=== PATIENT | male | born 1995 | race Two or more races ===

== ENCOUNTER 2024-12-30 13:30 | Emergency (ER) | payer OTHER, SELFPAY ==
[2024-12-30 13:30] VITALS: BP 130/83; PULSE 95; RESP 15; TEMP 36.1; O2SAT 100; BMI 32.5
--- NOTE | 2024-12-30 15:03 | RAD_ITS ---
PROCEDURE: CHEST PA AND LATERAL 12/30/2024 REASON FOR EXAM: POSTERIOR CHEST TECHNIQUE: Procedure Code: RADCXR Modality: DX Procedure: CHEST PA AND LATERAL FINDINGS: The heart is normal in size. The lungs are clear. No acute osseous abnormalities. RAD/Chest PA and Lateral IMPRESSION: NO ACUTE FINDINGS. Reading Location: [id number]
--- NOTE | 2024-12-30 15:21 | EDS_ITS ---
HPI History of Present Illness Chief Complaint: Back Detail of Chief Complaint: Pain posterior left chest pain over ribs 5-6, 7 and 8 Informant: patient Onset/Context/Timing Onset: Weeks (3 weeks) Context: Gradual Onset Chronic pain exacerbated by: Negative Injury: - (Started day after he played soccer.) Timing: Continuous Quality: Aching Location: Thoracic Current Severity: Mild Maximum Severity: Moderate Worsened by: improves with Movement Relieved by: Nothing Associated Symptoms Associated Symptoms: Negative for Numbness, Tingling, Radiation to Right Leg, Radiation to Left Leg, Fever, Abdominal Pain, Dysuria, Unable to Ambulate or Unable to Transfer Narrative Narrative: Patient is a 29-year-old male. He presents with 3 weeks of mid thoracic back pain. This started the day after he played soccer. He has no history of direct trauma. He did not have pain during the match. He denies fever, chills night sweats. He denies cough or shortness of breath. Deep breathing does cause him some discomfort. He has no history of VTE. He has no risk factors for VTE. He denies leg pain, swelling or discoloration. He denies dysuria, frequency, urgency or hematuria. Prior similar symptoms: No Recent Illness/Hospitalization: No PFSH PFSH Medical History no medical history Home Medications Medication Instructions Recorded Last Taken Type hydrocodone-acetaminophen 5-325mg 1 tab PO Q6H PRN PRN Pain 3 days 12/30/24 Unknown Rx 5mg-325mg #10 TABLETS Family History no significant family his Surgical History no surgical history no surgical history Social History Smoking Status: Current every day smoker tobacco type: cigarettes ROS ROS ED Constitutional Constitutional ED: Denies chills, fever(s), subjective or sweats Cardiovascular Cardiovascular: Denies chest pain, orthopnea, palpitations, paroxysmal nocturnal dyspnea or racing heartbeat Respiratory/Chest Respiratory/Chest: Denies dyspnea, dyspnea on exertion, orthopnea, paroxysmal nocturnal dyspnea or sputum Gastrointestinal Gastrointestinal: Denies abdominal pain, diarrhea, nausea or vomiting Genitourinary Genitourinary ED: Denies dysuria, hematuria or urinary frequency Musculoskeletal Musculoskeletal: Reports back pain; Denies arthralgias or myalgias Integumentary Denies rash EXAM Physical Exam Const Vital Signs: 12/30/24 13:30 Temperature 97 F L Temperature Source Temporal Pulse Rate 95 Respiratory Rate 15 Blood Pressure 130/83 H Blood Pressure Mean 98 Pulse Ox 100 Oxygen Delivery Method Room Air Positive well nourished and well developed General Appearance ED: well developed and NAD HEENT Reports moist mucous membranes HEENT Narrative: HEENT is grossly unremarkable. Eyes PERRL and EOMs intact bilaterally General Eye ED: Negative for pale conjunctiva or scleral icterus Neck no lymphadenopathy, supple and no JVD Resp normal respiratory effort and clear to auscultation bilaterally Resp Narrative: Patient has reproducible pain posteriorly over ribs 5, 6, 7 and 8. There is no crepitus subcutaneous air. There is no bruising noted. There is no rash. Cardio regular rate, regular rhythm, S1 normal heart sound, S2 normal heart sound and no murmurs GI normal to inspection, nondistended, normoactive bowel sounds, soft to palpation, non-tender, non-distended and no masses Back/Spine normal to inspection; Negative for no thoracic nor lumbar tenderness Cervical Spine: Negative for cervical spine tenderness and Negative for paracervical muscle tenderness Thoracic Spine / Upper Back: paraspinal muscle tenderness left Extremity normal to inspection and no clubbing, cyanosis or edema Neuro oriented x3 and no sensory deficits noted Sensorium / Orientation: alert Skin no rashes or lesions noted and no wounds MDM MDM MDM Narrative Medical decision making narrative: Patient has been taking 3 ibuprofen tablets with each meal. Had no improvement. He has also tried ice with no improvement. Based on history. Golf this consistent with musculoskeletal. Since he has point tenderness more so over the 6th and 7th rib will obtain an x-ray to see if there is any evidence of posterior rib fracture, pneumothorax or any pulmonary pathology. Radiography Chest X-Ray - ED: 2 View, Read by ED Physician (No evidence of pneumothorax. There is no effusion. There is no obvious fractured ribs.), Normal, Heart, Lungs, Mediastinum, Bony Structures and No Acute Disease Treatment and Re-Evaluation Narrative: Patient states she was sent here from the [facility]. He was informed of his results. He states he would need an excuse for school. I state I would gladly write a note stating he was here. He also stated he needs an excuse from an exam. Discharge Plan Triage Chief Complaint: Back ED Provider: Roman,Ambrocio Dx/Rx/DC Orders Clinical Impression: Acute left-sided thoracic back pain, Elevated blood pressure reading without diagnosis of hypertension Prescriptions: New hydrocodone-acetaminophen 5-325 mg tablet 1 tab PO Q6H PRN PRN (Reason: Pain) 3 Days Qty: 10 0RF Stand Alone Forms: ED Work / School Excuse Primary Care Provider: Care Physician,No Primary Referrals: [place] [Group of Physicians, None] - 3-5 Days if not improving Care Physician,No Primary [Primary Care Provider, Medical] Activity Restrictions/Additional Instructions: 1. Apply ice 6-8 times a day 2. Take 4 ibuprofen tablets every 8 hours for the next 5 days Print Language: Micronesian Disposition Disposition: Home, Self Care
== END 2024-12-30 15:52 | disposition home or self-care (01) ==
PROVIDERS: Emergency Provider Emergency Medicine; Visit Provider Emergency Medicine
DX: M54.6 Pain in thoracic spine (principal); R07.81 Pleurodynia; R03.0 Elevated blood-pressure reading, without diagnosis of hypertension; G89.29 Other chronic pain; F17.210 Nicotine dependence, cigarettes, uncomplicated; Z79.899 Other long term (current) drug therapy
CPT/HCPCS: 71046; 99282

== ENCOUNTER 2025-01-06 22:06 | Emergency (ER) | payer OTHER, SELFPAY ==
[2025-01-06 22:09] VITALS: BP 145/84; PULSE 96; RESP 18; TEMP 36.9; O2SAT 100; BMI 32.7
[2025-01-06] MEDS: Ketorolac 30 MG/ML Syringe IV (23:41)
[2025-01-06 23:46] LABS: Mucous, Urine 0 SEEN /hpf (<or=2+); Red Blood Cells-Urine 0 SEEN /hpf (0-5)
[2025-01-06 23:48] LABS: Hematocrit 46.8 % (40-54); Hemoglobin 15.4 g/dL (13.0-16.5); Immature Granulocytes Count 0.060 X10^3/uL (0.0-0.0); Mean Corp Hgb Conc 32.9 g/dL (32-36); Mean Corpuscular Volume 85.7 fL (80-94); Mean Platelet Vol. 10.0 fl (6.2-12.0); NRBC Flagged by Analyzer 0 % (0-5); Platelet Count 274 K/mm3 (150-450); RBC Distribution Width CV 12.5 % (11.6-14.6); RBC Distribution Width SD 39.0 fl (35.1-43.9); Red Blood Count 5.46 M/mm3 (4.6-6.2); White Blood Count 9.4 K/mm3 (4.4-11.0)
[2025-01-06 23:57] LABS: Color, Urine Yellow (Yellow); Glucose, Dipstick Normal (Normal); Ketone-Dipstick Negative (Negative); Leukocyte Esterase-Dipstick Negative /ul (Negative); Nitrite-Dipstick Negative (Negative); Occult Blood-Urine Negative /ul (Negative); Protein-Dipstick 15 mg/dl (Negative); Specific Gravity, Urine 1.015 (1.002-1.030); Urine Bilirubin Dipstick Negative (Negative)
[2025-01-07 00:16] LABS: Anion Gap 10 (5-15); BUN 15 mg/dL (4-19); BUN/Creat Ratio 16.5 RATIO (10-20); Calcium,Total 9.6 mg/dL (7.6-11.0); Carbon Dioxide 24.0 mmol/L (21.0-32.0); Chloride 105 mmol/L (98-108); Estimated Creatinine Clearance 164.88 ml/min (50-250); Glucose 93 mg/dL (70-99); Potassium 3.9 mmol/L (3.3-5.1)
[2025-01-07 00:33] LABS: Squamous Epithelial Cells - UA 0-5 SEEN /hpf (0-5)
--- NOTE | 2025-01-07 00:39 | ED.VIS.BACK ---
HPI History of Present Illness Chief Complaint: Back Informant: patient Narrative Narrative: 29-year-old male presenting to the emergency room with left lower abdominal pain and back pain. Patient states about 3 weeks ago he was playing soccer the next day he had some left-sided upper to mid back pain. He states that about 10 days ago the pain got significantly worse so he came to emergency. He had a chest x-ray was felt to be muscular in nature. He states that he took the cyclobenzaprine that he was prescribed. He has subsequently developed a left lower abdominal pain and now states that the majority of his back hurts. However most of the pain is focused on the low back up to the scapular region. It is worse with movement. He denies any radicular symptoms to the legs. Denies any bowel or bladder changes. No fevers. No rashes. Denies any difficulty breathing or chest pain. PFSH PFSH Home Medications ?Medication ?Instructions ?Recorded ?Last Taken ?Type ketorolac 10 mg tablet 10 mg PO Q8H PRN pain #15 tabs 01/07/25 Unknown Rx methocarbamol 750 mg tablet 750 mg PO TID PRN back pain #15 01/07/25 Unknown Rx tabs Allergy/AdvReac Type Severity Reaction Status Date / Time No Known Allergies Allergy Verified 01/06/25 22:12 Social History Smoking Status: Current every day smoker tobacco type: cigarettes ROS ROS ED Constitutional Constitutional ED: Denies chills, fever(s) or weight loss Eyes Eyes: Denies change in vision or diplopia ENT ENT ED: Denies ear pain, rhinorrhea or sore throat Cardiovascular Cardiovascular: Denies chest pain, orthopnea, palpitations or racing heartbeat Respiratory/Chest Respiratory/Chest: Denies cough, dyspnea or orthopnea Gastrointestinal Gastrointestinal: Reports abdominal pain; Denies constipation, diarrhea, nausea or vomiting Genitourinary Genitourinary ED: Denies dysuria, hematuria or urinary frequency Musculoskeletal Musculoskeletal: Reports back pain; Denies arthralgias, myalgias or neck pain Integumentary Denies abscess or rash Neurologic Neurologic: Denies headache(s), paresthesias or weakness Psychiatric Psychiatric: Denies anxiety, depression, suicidal ideation or suicidal thoughts Endocrine Endocrinology: Denies polydipsia, polyphagia or polyuria Allergic/Immunologic Allergic/Immunologic ED: Denies mouth swelling, tongue swelling or urticaria EXAM Physical Exam Const Vital Signs: 01/06/25 22:09 Temperature 98.4 F Temperature Source Oral Pulse Rate 96 Respiratory Rate 18 Blood Pressure 145/84 H Blood Pressure Mean 104 Pulse Ox 100 Oxygen Delivery Method Room Air Positive well nourished and well developed General Appearance ED: well developed HEENT Reports normocephalic, head/scalp atraumatic and moist mucous membranes Eyes PERRL and EOMs intact bilaterally Neck no lymphadenopathy, supple and no JVD Resp normal respiratory effort and clear to auscultation bilaterally Cardio regular rate, regular rhythm and no murmurs GI soft to palpation, non-distended and no masses GI Narrative: Normal active bowel sounds. Mild tenderness to palpation without guarding or rebound the left lower quadrant. Inspection: Negative for abdominal distention Palpation: soft Back/Spine no CVA tenderness Back/Spine Narrative: Patient reports pain with sitting up. He does not appear particularly tender when I palpate the paraspinal musculature's. I do not appreciate any rashes. There is no CVA tenderness. Extremity normal to inspection General Extremety ED: Negative for edema General Extremity: Negative for edema Neuro oriented x3 and CN's II-XII intact bilaterally Sensorium / Orientation: alert Motor Exam: strength 5/5 throughout Deep Tendon Reflexes: Rt Patellar (L4): 2+, Lt Patellar (L4): 2+, Rt Ankle (S1): 2+ and Lt Ankle (S1): 2+ Deep Tendon Reflexes Back: Rt Patellar (L4): 2+, Lt Patellar (L4): 2+, Rt Ankle (S1): 2+ and Lt Ankle (S1): 2+ Psych mental status grossly normal Mood & Affect: Negative for depressed or tearful Skin no rashes or lesions noted and no wounds MDM MDM MDM Narrative Medical decision making narrative: Differential diagnosis includes ureterolithiasis UTI back spasm diverticulitis colitis malignancy discitis herniated disc Patient is neurologically intact without deficits or radiation to the legs. He has no bowel or bladder dysfunction. Basic blood work showed a white count of 9.4 normal creatinine. Urinalysis showed no overt infection. CT of the abdomen pelvis without contrast was obtained. No obvious ureterolithiasis was seen. No obvious colonic inflammation was noted. I do not see any obvious fracture. At this time patient clinically appears well I do not see anything emergent. However I cannot explain why the patient continues to have pain 3 weeks in duration. Methocarbamol and some ketorolac. I encouraged the patient to follow-up with his primary care doctor at the [facility] at the [facility]. Monitor for changes return if any emergent or worsening some History & Record Review Discussion w/independent historian: Patient Additional record(s) reviewed:: Prior ED visit Lab Data Attestation: I reviewed the patient's lab results. Labs: Laboratory Results - last 24 hr 01/06/25 01/06/25 23:35 23:40 WBC 9.4 RBC 5.46 Hgb 15.4 Hct 46.8 MCV 85.7 MCH 28.2 MCHC 32.9 RDW Std Deviation 39.0 RDW Coeff of Amelia 12.5 Plt Count 274 MPV 10.0 Immature Gran % (Auto) 0.600 Neut % (Auto) 65.5 Lymph % (Auto) 24.4 [place] % (Auto) 6.5 Eos % (Auto) 2.4 Baso % (Auto) 0.6 Absolute Neuts (auto) 6.2 Absolute Lymphs (auto) 2.30 Nucleated RBC % 0 Sodium 139 Potassium 3.9 Chloride 105 Carbon Dioxide 24.0 Anion Gap 10 BUN 15 Creatinine 0.91 Estim Creat Clear Calc 164.88 Est GFR (MDRD) Non-Af 118 BUN/Creatinine Ratio 16.5 Glucose 93 Calcium 9.6 Urine Color Yellow Urine Clarity Clear Urine pH 7.0 Ur Specific Murray 1.015 Urine Protein 15 H Urine Glucose (UA) Normal Urine Ketones Negative Urine Occult Blood Negative Urine Nitrite Negative Urine Bilirubin Negative Urine Urobilinogen Normal Ur Leukocyte Esterase Negative Urine RBC 0 SEEN Urine WBC 0-5 SEEN Ur Squamous Epith Cells 0-5 SEEN Urine Bacteria 1+ Urine Mucus 0 SEEN Radiography Diagnostic Testing: Clinical Impression(s) from Imaging Studies Abdomen/Pelvis CT 01/07/25 23:14 IMPRESSION: No urinary calculi or backpressure changes. Hepatic steatosis. T9 vertebral body sclerotic lesion. No acute pelvi-abdominal abnormalities, collections or free air. Reading Location: [place] [id number] Discharge Plan Triage Chief Complaint: Back ED Provider: Jose Maria Grant Dx/Rx/DC Orders Clinical Impression: Abdominal pain, Back pain Instructions: ED Back Pain (Acute or Chronic) Prescriptions: New ketorolac 10 mg tablet 10 mg PO Q8H PRN (Reason: pain) Qty: 15 0RF Rx Instructions: maximum total duration of 5 days from all oral, intranasal, or parenteral formulations methocarbamol 750 mg tablet 750 mg PO TID PRN (Reason: back pain) Qty: 15 0RF Discontinued cyclobenzaprine 10 mg tablet 10 mg PO DAILY Primary Care Provider: Care Physician,No Primary Referrals: [facility] [Group of Physicians, None] - As soon as possible Care Physician,No Primary [Primary Care Provider, Medical] Print Language: Greek Disposition Disposition: Home, Self Care
[2025-01-07 00:59] VITALS: BP 149/86; PULSE 86; RESP 18; TEMP 36.7; O2SAT 100
--- NOTE | 2025-01-07 23:14 | CT_ITS ---
PROCEDURE: CT/Abdomen/Pelvis without Cont
== END 2025-01-07 01:01 | disposition home or self-care (01) ==
PROVIDERS: Emergency Provider Emergency Medicine; Visit Provider Emergency Medicine
DX: R10.32 Left lower quadrant pain (principal); M54.9 Dorsalgia, unspecified; F17.210 Nicotine dependence, cigarettes, uncomplicated; Z79.899 Other long term (current) drug therapy
CPT/HCPCS: 74176; 80048; 81001; 85025; 96374; 99283; A4216

== ENCOUNTER 2025-01-10 07:17 | Inpatient (IN) | payer OTHER, SELFPAY ==
[2025-01-10] VITALS (7 sets, daily range): BP systolic 131–157; BP diastolic 71–91; PULSE 64–87; RESP 14–16; TEMP 36.7; O2SAT 98–100; BMI 31.9
--- NOTE | 2025-01-10 07:41 | CT_ITS ---
PROCEDURE: CT/CTA Chst, Abd, Pel W and/or WO
[2025-01-10] MEDS: 0.9% Normal Saline (1000mL) 1,000 ML 1000 ML IV (08:09)
[2025-01-10 08:10] LABS: Hematocrit 43.4 % (40-54); Hemoglobin 14.6 g/dL (13.0-16.5); Immature Granulocytes Count 0.040 X10^3/uL (0.0-0.0); Mean Corp Hgb Conc 33.6 g/dL (32-36); Mean Corpuscular Volume 85.3 fL (80-94); Mean Platelet Vol. 10.4 fl (6.2-12.0); NRBC Flagged by Analyzer 0 % (0-5); Platelet Count 276 K/mm3 (150-450); RBC Distribution Width CV 12.4 % (11.6-14.6); RBC Distribution Width SD 38.5 fl (35.1-43.9); Red Blood Count 5.09 M/mm3 (4.6-6.2); White Blood Count 8.0 K/mm3 (4.4-11.0)
[2025-01-10 08:37] LABS: AST(SGOT) 32 U/L (<=37); Alanine Aminotransfer ALT/SGPT 53 U/L (<=46); Albumin, Serum 4.4 g/dL (3.5-5.0); Alkaline Phosphatase 133 U/L (40-129); Anion Gap 8 (5-15); BUN 14 mg/dL (4-19); BUN/Creat Ratio 14.8 RATIO (10-20); Bilirubin, Direct 0.25 mg/dL (0.00-0.30); Calcium,Total 9.5 mg/dL (7.6-11.0); Carbon Dioxide 24.9 mmol/L (21.0-32.0); Chloride 106 mmol/L (98-108); Estimated Creatinine Clearance 163.02 ml/min (50-250); Globulin 2.6 g/dL (2.2-4.2); Glucose 104 mg/dL (70-99); Lipase 14 U/L (13-75); Potassium 4.1 mmol/L (3.3-5.1); Troponin T High Sensitivity 12 ng/L (<=22)
--- NOTE | 2025-01-10 08:44 | ED.VIS.BACK ---
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 This is the patient's third ED visit in 10 days. Patient states that the pain began the day after playing a game of soccer. He was seen initially in the emergency department and had a negative chest x-ray. He returned to last week and I saw the patient. At that point he was describing more left lower abdominal pain and left low back pain but otherwise a generalized back pain. He underwent CT of the abdomen pelvis and basic lab works and a urinalysis both of which were negative and was discharged home on ketorolac and methocarbamol. He states that the pain is in the mid back currently. He denies any abdominal pain or low back pain. He states that he cannot find a position of comfort and feels better up moving around. He denies any fevers. He denies any radiation of the pain. No bowel or bladder dysfunction. He denies any rashes or lesions. He denies any chest pain or shortness of breath. He denies any new trauma. He has not followed up from either of his previous ED visits. [facility] Home Medications ?Medication ?Instructions ?Recorded ?Last Taken ?Type ketorolac 10 mg tablet 10 mg PO Q8H PRN pain #15 tabs 01/07/25 Unknown Rx methocarbamol 750 mg tablet 750 mg PO TID PRN back pain #15 01/07/25 Unknown Rx tabs Allergy/AdvReac Type Severity Reaction Status Date / Time No Known Allergies Allergy Verified 01/10/25 07:18 Social History Smoking Status: Current every day smoker tobacco type: cigarettes ROS ROS ED Constitutional Constitutional ED: Denies chills, fever(s) or weight loss Eyes Eyes: Denies blurry vision, change in vision or diplopia ENT ENT ED: Denies ear pain, rhinorrhea or sore throat Cardiovascular Cardiovascular: Denies chest pain, orthopnea, palpitations or racing heartbeat Respiratory/Chest Respiratory/Chest: Denies cough, dyspnea or orthopnea Gastrointestinal Gastrointestinal: Denies abdominal pain, constipation, diarrhea, nausea or vomiting Genitourinary Genitourinary ED: Denies dysuria, hematuria or urinary frequency Musculoskeletal Musculoskeletal: Reports back pain; Denies arthralgias, myalgias or neck pain Integumentary Denies abscess or rash Neurologic Neurologic: Denies headache(s), paresthesias or weakness Psychiatric Psychiatric: Denies anxiety, depression, suicidal ideation or suicidal thoughts Endocrine Endocrinology: Denies polydipsia, polyphagia or polyuria Allergic/Immunologic Allergic/Immunologic ED: Denies mouth swelling, tongue swelling or urticaria EXAM Physical Exam Narrative Exam Narrative: Patient appears to be unable to sit still. Even when out of the bed he is up moving around. Const Vital Signs: 01/10/25 07:18 01/10/25 11:17 01/10/25 11:33 Temperature 98.1 F Temperature Source Oral Pulse Rate 86 80 72 Respiratory Rate 16 14 15 Blood Pressure 140/91 H 145/84 H Blood Pressure Mean 107 104 Pulse Ox 100 98 100 Oxygen Delivery Method Room Air Room Air Room Air Positive well nourished and well developed General Appearance ED: well developed and NAD HEENT Reports normocephalic, head/scalp atraumatic and moist mucous membranes Eyes PERRL and EOMs intact bilaterally Neck no lymphadenopathy, supple and no JVD Resp normal respiratory effort and clear to auscultation bilaterally Cardio regular rate, regular rhythm and no murmurs GI normal to inspection, nondistended, normoactive bowel sounds and non-tender Palpation: soft Back/Spine no CVA tenderness and normal ROM Back/Spine Narrative: Patient complains of tenderness to palpation over the lower thoracic paraspinal musculature. I do not appreciate a scoliotic pattern. I do not appreciate tissue texture changes to suggest underlying infection. Extremity normal to inspection General Extremety ED: Negative for edema General Extremity: Negative for edema Neuro oriented x3 and CN's II-XII intact bilaterally Sensorium / Orientation: alert Motor Exam: strength 5/5 throughout Deep Tendon Reflexes: Rt Patellar (L4): 2+, Lt Patellar (L4): 2+, Rt Ankle (S1): 2+ and Lt Ankle (S1): 2+ Deep Tendon Reflexes Back: Rt Patellar (L4): 2+, Lt Patellar (L4): 2+, Rt Ankle (S1): 2+ and Lt Ankle (S1): 2+ Psych mental status grossly normal Mood & Affect: Negative for depressed or tearful Skin no rashes or lesions noted and no wounds MDM MDM MDM Narrative Medical decision making narrative: Differential diagnosis includes but not limited to aortic dissection pulmonary embolism pleural effusion discitis osteomyelitis herniated disc infection Patient blood work today is rather unremarkable white count is 8 with a normal differential. Alk phos is noted to be 133 ALT 53 AST of 52. CTA of the chest abdomen pelvis was unremarkable except for noted T9 sclerosis. Patient received morphine and Valium. I discussed with the patient the above findings. He shares with me that he had an MRI of his lumbar spine last year. He has a results with him and I reviewed which showed mild changes at the L5-S1 region which is well below the area that he is today stating he has pain. We talked about a thoracic MRI. As this is his third visit and do not have a clear etiology of his symptoms we are going to work towards obtaining a thoracic MRI. Thoracic MRI with and without contrast was obtained. This demonstrates an epidural abscess as well as changes consistent with a paraspinal fluid collection and osteomyelitis. There is some mass effect. Please see the radiologist read for full details. Patient had blood cultures obtained ceftriaxone and vancomycin were ordered. I spoke with the patient regarding his need to see spinal surgery and probable surgery/hospitalization. He has requested transfer to [facility]. I spoke with their transfer line and we are awaiting phone call back. History & Record Review Discussion w/independent historian: Patient Additional record(s) reviewed:: Prior ED visit and Prior labs Lab Data Attestation: I reviewed the patient's lab results. Labs: Laboratory Results - last 24 hr 01/10/25 07:55 WBC 8.0 RBC 5.09 Hgb 14.6 Hct 43.4 MCV 85.3 MCH 28.7 MCHC 33.6 RDW Std Deviation 38.5 RDW Coeff of Amelia 12.4 Plt Count 276 MPV 10.4 Immature Gran % (Auto) 0.500 Neut % (Auto) 61.6 Lymph % (Auto) 27.8 [place] % (Auto) 7.2 Eos % (Auto) 2.2 Baso % (Auto) 0.7 Absolute Neuts (auto) 4.9 Absolute Lymphs (auto) 2.23 Nucleated RBC % 0 Sodium 139 Potassium 4.1 Chloride 106 Carbon Dioxide 24.9 Anion Gap 8 BUN 14 Creatinine 0.91 Estim Creat Clear Calc 163.02 Est GFR (MDRD) Non-Af 118 BUN/Creatinine Ratio 14.8 Glucose 104 H Calcium 9.5 Total Bilirubin 0.70 Direct Bilirubin 0.25 AST 32 ALT 53 H Alkaline Phosphatase 133 H Troponin T High Sens 12 Total Protein 7.0 Albumin 4.4 Globulin 2.6 Lipase 14 Radiography Diagnostic Testing: Clinical Impression(s) from Imaging Studies Chest/Abdomen/Pelvis CTA 01/10/25 07:41 IMPRESSION: No evidence of dissection. Sclerosis of the T9 vertebrae. Borderline hepatomegaly with diffuse fatty infiltration of the liver. Reading Location: [id number] Thoracic Spine MRI 01/10/25 10:25 IMPRESSION: 1. Paraspinal (left) and epidural abscess centered at T9 with description above. Abnormal signal in the T9 vertebral body. Osteomyelitis should be considered. No finding of discitis at this time. 2. Straightening of the thoracic kyphosis. [place] Alert: Infection as above The critical findings in the findings and impression above were relayed directly by me by telephone to Jose Maria Grant on 01/10/2025 at 1:40 pm EST with readback verification. Reading Location: [facility] EKG Initial EKG: Attestation: I personally reviewed and interpreted this EKG as follows: Comments: Normal sinus rhythm ventricular rate of 61 Management Discussion w/another healthcare provider: [employer] Dispatcher ([facility]) and Radiologist Discharge Plan Dx/Rx/DC Orders Clinical Impression: Back pain, Epidural abscess, Acute osteomyelitis of thoracic spine Disposition Disposition: Acute Care Hospital [facility]
--- NOTE | 2025-01-10 10:25 | MRI_ITS ---
PROCEDURE: MRI/Spine Thoracic W/WO Contrast
[2025-01-10] MEDS: Ceftriaxone 2 GM in 0.9% Normal Saline (50mL MB+) 50 ML IV ×2 (15:07→22:00)
[2025-01-10] MEDS: Vancomycin HCl 2,000 MG in 0.9% Normal Saline (500mL Bag) 500 ML 250 MG IV (16:13)
--- NOTE | 2025-01-10 22:55 | ED.RN ---
Pt wearing t shirt and sweat shirt, declines changing into hospital gown at this time.
--- NOTE | 2025-01-10 22:59 | ED.RN ---
Please Odette Hodges senior digital designer at [facility] if pt has any needs. [phone]
[2025-01-11] MEDS: HYDROmorphone 0.5 MG/0.5 ML SYRINGE IV ×4 (00:59→09:35)
[2025-01-11 01:00] VITALS: BP 154/84; PULSE 82; RESP 18; TEMP 36.8; O2SAT 100
--- NOTE | 2025-01-11 01:30 | ED.RN ---
This RN moved the patient to another room in the ED in order to provide more comfortable accommodations while the patient is waiting for a bed at [facility]. This RN explained that the wait will be lengthy and unpredictable. This RN brought a visitor chair from [place] [id number] with the permission of the [employer] to allow the patient's guest to spend the night with the patient in the ED, along with blankets and pillows to provide comfort to the patient and his sister.
--- NOTE | 2025-01-11 03:23 | PCA ---
Pt family requesting we check with other hospitals for pt to be transferred faster. Family stating they called [facility], [facility], and [facility] and were told by all of these hospitals that they have spine doctors & beds available, unsure of who specifically they spoke to at these facilities. This secretary office clerk called transfer center and inquired about availability. The transfer center nurse stated with pts current needs, they would not have a bed for multiple days even though they do have the capabilities if the pt wished to cancel transfer with [facility] and initiate a transfer there instead. This secretary office clerk called [facility] to inquire the same. The [facility] transfer center also stated that they do not have any surgical beds or medical beds available for an unknown amount of days. This secretary office clerk did not call [facility] to inquire as [facility] is a [facility] facility, and pt would have to be taken off of [facility] waitlist and start the process over, which family stated they did not want to do or lose his spot on the current waiting list. This secretary office clerk explained she spoke to the [facility] transfer line at 0015 to follow up on bed status and was told by James that there are no beds at this time due to 25 pts in their ER waiting for beds, but more than likely a bed would be available sometime this evening (Friday01/11/25). This secretary office clerk explained this to pts family. Pt family also asked if financials are a decider in this process at all, to which this secretary office clerk stated they are not. Family also asked if due to the delay waiting for a bed if that is affecting his care or medications here, this secretary office clerk explained to them it is not. Family had no further questions at this time.
[2025-01-11 05:00] VITALS: BP 131/76; PULSE 73; PULSE 78; RESP 16; TEMP 36.7; O2SAT 100; O2SAT 99
--- NOTE | 2025-01-11 05:05 | PCA ---
This front office secretary called [facility] transfer line for an update on bed status per hospitalist request, spoke to Tito. He stated we are still on track to receive a bed this evening, does not seem as though a bed will open up any earlier than that.
--- NOTE | 2025-01-11 05:17 | ED.RN ---
This RN and ELPIDIO Gautam explained to the patient and multiple family members/friends of the patient that the patient is waiting for a bed at [facility]. The patient and his various visitors that the patient is accepted to [facility] and [facility] cannot change or predict the timeline of when the patient will get a bed. The patient and his visitors are concerned that the patient is not getting treatment and will get worse while sitting in the ED. This RN and ELPIDIO Gautam explained multiple times that the patient is getting the appropriate antibiotics and pain control while waiting for a bed. The patient's visitors expressed concerns that the patient could be transferred to a different hospital and receive treatment/care sooner. The patient's visitors explained that they called multiple other hospitals, which these hospitals informed the patient's visitors that they could accept the patient. Which prompted the US to call these other hospitals, these other hospitals informed [facility] that they would not have a bed for the patient for multiple days. This RN reiterated to the patient that [facility] is giving the patient the appropriate care and management of symptoms for the patient's condition, and we would be waiting for the patient's bed at the transfer hospital. The patient and his visitors had expressed wishes of leaving AMA and driving the patient up to another hospital. This RN explained in length that the patient is on a wait list to get transferred to [facility] and leaving AMA would not be advised d/t the fact they would lose their spot in the wait list. ELPIDIO Gautam also explained in great length to the patient and his visitors that the patient is waiting for a bed at [facility] and that [facility] is doing everything possible to get the patient transferred there, however we are waiting for a bed at the receiving hospital d/t their facility having an influx of patients as well. This RN ensured that the patient is getting the care that the patient needs at this time. After multiple conversations, at great length, with the patient and his visitors, the patient is agreeable to stay and wait for a bed at [facility].
--- NOTE | 2025-01-11 05:28 | PCM.HP.STD ---
HPI - General General Date of Admission: 01/11/25 Date of Service: 01/11/25 Chief Complaint: back pain HPI Narrative ARAMIS IRELAND, is a 29 M who presented to the emergency department at [facility] on 01/10/2025 for acute back pain. Patient states he has been having pain for about a month now in his mid back. It started when he was playing some soccer. He has been to the emergency department 3 times in the last 10 days due to persistently worsening pain. At his last ED visit he was complaining of some more lower abdominal and left low back pain and so there was concern for possible kidney stone and a CT of the abdomen pelvis was performed and basic lab work along with a urinalysis all of which were negative. He was sent home with Toradol and methocarbamol at that time however he has an ongoing mid back pain that is increasing in severity. He denies any tingling or numbness or weakness in his lower extremities. He denies any abnormalities in his bowel or bladder function. He indicated that he was really having difficulty finding a comfortable position and felt better moving around. He has had no fevers or chills. He denies any IV drug use or injectable medications. He denies any wounds. Patient admits to smoking tobacco of about a half a pack a day. Patient denies any previous spine surgery. Vital signs on presentation showed temperature of 98.1, heart rate 86, respiratory 16, blood pressure was 140/91 and pulse ox was 100% on room air. CBC was overtly unremarkable with no white count or left shift. Chemistry panel was unremarkable. Lactic acid was less than 1. Liver functions were slightly abnormal with an AST of 32 and an ALT of 53. Alk phos was 133. Lipase was normal. With his ongoing pain a CTA of his chest abdomen pelvis was performed and showed no evidence of dissection, sclerosis at the T9 vertebrae and borderline hepatomegaly with diffuse fatty infiltration of the liver. Given his ongoing pain and a stat MRI of the thoracic spine was ordered from the emergency department. Stat MRI revealed paraspinal on the left and epidural abscess centered at T9 that is 6.9 x 0.9 x 1.8 cm in the epidural space and the left lateral paraspinal component is contiguous and a 4.9 x 5.5 x 1.9 cm. There is mass effect seen on the spinal cord with abnormal cord signal from T8-T10. There is straightening of the kyphosis in the thoracic spine. No discitis was noted. There are some abnormal signals in the T9 vertebral body which is concerning for osteomyelitis. Given these findings on imaging, stat blood cultures were ordered and the patient was started on third-generation cephalosporin with ceftriaxone 2 g every 8 hours as well as vancomycin. Patient requested transfer to tertiary center and patient has been accepted at [facility]. We have called the call center and there are no beds available at this time with plan bed availability later today. Other facilities were called and they offered to place him on a waiting list however no immediate bed availability was found. Patient has no neurological symptoms. [facility] Medical History (Updated 01/11/25 @ 05:[address] Madisyn Quinteros DO) Tobacco abuse Home Medications ?Medication ?Instructions ?Recorded ?Last Taken ?Type ketorolac 10 mg tablet 10 mg PO Q8H PRN pain #15 tabs 01/07/25 Unknown Rx methocarbamol 750 mg tablet 750 mg PO TID PRN back pain #15 01/07/25 Unknown Rx tabs Allergy/AdvReac Type Severity Reaction Status Date / Time No Known Allergies Allergy Verified 01/10/25 07:18 Family History no significant family his no significant family history Surgical History no surgical history no surgical history Social History (Updated 01/11/25 @ 05:[address] Madisyn Quinteros DO) current occupation: student at the [employer] Smoking Status: Current every day smoker tobacco type: cigarettes alcohol intake: current alcohol intake frequency: a few times a month substance use type: does not use ROS Constitutional Constitutional: Denies anorexia, change in weight, chills, fatigue, fever(s), malaise, night sweats, weakness or other Eyes Eyes: Denies blurry vision, change in eye color, change in vision, discharge from eye(s), double vision, erythema, eye pain, loss of vision or other ENT HEENT: Denies abnormal hearing, dysphagia, ear pain, epistaxis, headache(s), hearing loss, nasal congestion, nasal discharge, post nasal drip, sinus pressure, sore throat or other Cardiovascular Cardiovascular: Denies chest pain, claudication, dyspnea on exertion, edema, lightheadedness, orthopnea, palpitations, paroxysmal nocturnal dyspnea, rapid heart rate, syncope or other Respiratory/Chest Respiratory/Chest: Denies cough, dyspnea, excessive phlegm production, hemoptysis, productive cough, shortness of breath at rest, shortness of breath with exertion, wheezing or other Gastrointestinal Gastrointestinal: Denies abdominal pain, coffee ground emesis, constipation, diarrhea, dyspepsia, hematemesis, hematochezia, loose stools, melena, nausea, vomiting or other Genitourinary Genitourinary: Denies burning urination, difficulty urinating, dysuria, hematuria, nocturia, urinary frequency, urinary hesitancy, urinary incontinence, urinary urgency or other Musculoskeletal Musculoskeletal: Reports back pain; Denies arthralgias, joint pain, joint stiffness, joint swelling, myalgias, neck pain or other Neurologic Neurologic: Denies abnormal gait, abnormal speech, confusion, disequilibrium, dizziness, focal weakness, headache(s), numbness, paresthesias, seizure-like activity, seizures, syncope, tingling, tremor(s) or other Psychiatric Psychiatric: Denies anxiety, depression, homicidal ideation, suicidal ideation or other Endocrine Endocrinology: Denies change in body appearance, cold intolerance, excessive sweating, heat intolerance, polydipsia, polyuria or other Hematologic/Lymphatic Hematologic/Lymphatic: Denies anemia, easy bleeding, easy bruising, lymphadenopathy or other Allergic/Immunologic Allergic/Immunologic: Denies rhinitis, hives, eczemia, asthma or other Vital Signs Vital Signs Vital Signs: 01/10/25 07:18 01/10/25 11:17 01/10/25 11:33 Temperature 98.1 F Temperature Source Oral Pulse Rate 86 80 72 Respiratory Rate 16 14 15 Blood Pressure 140/91 H 145/84 H Blood Pressure Mean 107 104 Pulse Ox 100 98 100 Oxygen Delivery Method Room Air Room Air Room Air 01/10/25 15:00 01/10/25 19:00 01/10/25 21:32 Temperature 98.0 F Temperature Source Oral Pulse Rate 87 79 64 Respiratory Rate 16 16 14 Blood Pressure 131/80 H 134/76 H 157/75 H Blood Pressure Mean 97 95 102 Pulse Ox 99 99 98 Oxygen Delivery Method Room Air 01/10/25 22:56 01/11/25 01:00 Temperature 98.2 F Temperature Source Oral Pulse Rate 68 82 Respiratory Rate 14 18 Blood Pressure 138/71 H 154/84 H Blood Pressure Mean 93 107 Pulse Ox 98 100 Oxygen Delivery Method Room Air Room Air Weight Weight: 113 kg Body Mass Index (BMI) 31.9 Physical Exam Const alert, oriented x3, no apparent distress and well nourished Constitutional Narrative: Obese, Young, middle-aged thin, male, lying in bed, currently appears comfortable and nontoxic, significant other at bedside, appears somewhat nervous General Appearance: cooperative HEENT normocephalic, head/scalp atraumatic, hearing grossly normal bilaterally and moist oral mucous membranes HEENT Narrative: Mallampati 2, no thrush, dentition is good Neck supple Neck Narrative: Trachea midline Resp normal respiratory effort, no retractions, no use of accessory muscles and clear to auscultation bilaterally Auscultation: Negative for rales, rhonchi or wheezes Cardio regular rate, regular rhythm, S1 normal heart sound, S2 normal heart sound, no murmurs, no rub, no gallops and no clicks GI normal to inspection, nondistended, normoactive bowel sounds, soft to palpation and non-tender Extremity no clubbing, cyanosis or edema Extremity Narrative: Pedal pulses are 2+, radial pulses are 2+ Neuro oriented x3, moves all extremities and no focal motor deficits Neuro Narrative: Lower extremity strength is 5 out of 5, reflexes are 2+ at patellar and Achilles tendon, no clonus is present, and sensation is normal bilateral lower extremities Speech: speech normal Psych affect normal Psych Narrative: Mildly anxious but appropriate for the current situation, patient makes good eye contact and interacts appropriately Results Lab / Micro Data 01/10/25 07:55 01/10/25 07:55 Labs: Laboratory Results - last 24 hr 01/10/25 07:55: WBC 8.0, RBC 5.09, Hgb 14.6, Hct 43.4, MCV 85.3, MCH 28.7, MCHC 33.6, RDW Std Deviation 38.5, RDW Coeff of Amelia 12.4, Plt Count 276, MPV 10.4, Immature Gran % (Auto) 0.500, Neut % (Auto) 61.6, Lymph % (Auto) 27.8, Stan[place] % (Auto) 7.2, Eos % (Auto) 2.2, Baso % (Auto) 0.7, Absolute Neuts (auto) 4.9, Absolute Lymphs (auto) 2.23, Nucleated RBC % 0, Sodium 139, Potassium 4.1, Chloride 106, Carbon Dioxide 24.9, Anion Gap 8, BUN 14, Creatinine 0.91, Estim Creat Clear Calc 163.02, Est GFR (MDRD) Non-Af 118, BUN/Creatinine Ratio 14.8, Glucose 104 H, Calcium 9.5, Total Bilirubin 0.70, Direct Bilirubin 0.25, AST 32, ALT 53 H, Alkaline Phosphatase 133 H, Troponin T High Sens 12, Total Protein 7.0, Albumin 4.4, Globulin 2.6, Lipase 14 01/10/25 14:43: Lactic Acid < 1.0 Imaging Radiology Impression Chest/Abdomen/Pelvis CTA 01/10/25 07:41 IMPRESSION: No evidence of dissection. Sclerosis of the T9 vertebrae. Borderline hepatomegaly with diffuse fatty infiltration of the liver. Reading Location: [id number] Thoracic Spine MRI 01/10/25 10:25 IMPRESSION: 1. Paraspinal (left) and epidural abscess centered at T9 with description above. Abnormal signal in the T9 vertebral body. Osteomyelitis should be considered. No finding of discitis at this time. 2. Straightening of the thoracic kyphosis. [place] Alert: Infection as above The critical findings in the findings and impression above were relayed directly by me by telephone to Jose Maria Grant on 01/10/2025 at 1:40 pm EST with readback verification. Reading Location: [facility] Assessment & Plan Assessment/Plan (1) Epidural abscess: (2) Acute osteomyelitis of thoracic spine: PLAN: Plan Acute thoracic back pain secondary to T9 osteomyelitis and epidural/paraspinal abscess - Blood cultures obtained in the emergency department prior to admission - Continue broad-spectrum antibiotics with third-generation cephalosporin and ceftriaxone 2 g every 8 hours and vancomycin - Check sed rate CRP - Check HIV status - Patient denies history of IV drug use and etiology of infection is unclear at this time - Patient denies any previous instrumentation or surgical procedures in his back and no current wounds - Clear liquid diet in case patient requires more urgent surgery - As needed Toradol - As needed oxycodone - As needed methocarbamol - Scheduled Tylenol - As needed Dilaudid - Neurovascular checks every 2 hours - Hold off for infectious disease and spine surgery consultation for now - If patient does not receive bed later today or has any change in status such as change in neurological function may need consultation here however we were told by [facility] that a bed is expected later today Elevated ALT/alk phos - Mild hepatosteatosis noted in the liver on CT - Recommend outpatient follow-up Tobacco abuse - patient smokes about a half a pack of cigarettes daily - Nicotine patch available x 1 dose - As needed nicotine gum Obesity - BMI 32.0 - Recommend weight loss - Complicates treatment, prognosis, outcomes DVT prophylaxis - Subcu Lovenox 40 mg daily CODE STATUS - Full code TRANSFER DELAY Joellen Cali was evaluated in the Emergency Department at [facility] on 01/11/2025. At the time of evaluation, transfer to a tertiary hospital was felt to be in the patient's best interest due to patient request and large epidural and paraspinal abscess with osteomyelitis. Attempts were made by the Emergency Department and/or the Hospitalist team to get Mr. Ireland to the appropriate level of care. Although the pt is accepted for transfer to [facility], there are no staffed beds currently available. Given the need for ongoing medical care, Mr. Ireland will be admitted to [facility] on 01/11/2025, and care will be provided here until [facility] has an available staffed bed. Pt and/or family are aware of the transfer, the reasoning behind the need for transfer, and that until a staffed bed becomes available, we will provide evidence-based care to the best of our abilities, with the limitations of care here being fully addressed. Charges/Coding Visit Charges Inpatient E&M: 99106 Init Hosp L2
[2025-01-11 06:00] VITALS: BMI 31.4
[2025-01-11 06:03] VITALS: BP 157/81; PULSE 72; RESP 17; TEMP 36.9; O2SAT 98
[2025-01-11] MEDS: Ceftriaxone 2 GM in 0.9% Normal Saline (50mL MB+) 50 ML IV (06:10)
--- NOTE | 2025-01-11 06:20 | PCM.RX.CS ---
Consult Antibiotic Management Pharmacy has been consulted to manage selected antibiotic: Vancomycin Type of Intervention Type of Consult: New start Labs Labs: Sodium 139 mmol/L (133-145) 01/10/25 07:55 Potassium 4.1 mmol/L (3.3-5.1) 01/10/25 07:55 Chloride 106 mmol/L (98-108) 01/10/25 07:55 Carbon Dioxide 24.9 mmol/L (21.0-32.0) 01/10/25 07:55 Anion Gap 8 (5-15) 01/10/25 07:55 BUN 14 mg/dL (4-19) 01/10/25 07:55 Creatinine 0.91 mg/dL (0.70-1.20) 01/10/25 07:55 Est GFR (MDRD) Non-Af 118 (>60) 01/10/25 07:55 BUN/Creatinine Ratio 14.8 RATIO (10-20) 01/10/25 07:55 Glucose 104 mg/dL (70-99) H 01/10/25 07:55 Dosing Weight Weight used for dosin kg Estimated Creatinine Clearance Estimated Creatinine Clearance: 163 Goal Trough Goal Trough: 15-20 mcg/mL Pharmacy Plan for Drug Dosing Pharmacy Plan for Drug Dosing: Pharmacy Service will continue to monitor and adjust dosing as required. ER DOSE 2000MG GIVEN 01/10 @ 1613. ADMITTED TO FLOOR @ 0600, START 1500MG Q8H AND DRAW TROUGH PRIOR TO 4TH DOSE (0600 DOSE B/C OF LATE START ON 2ND DOSE) Follow-Up Labs Follow-Up Labs: Trough: Vancomycin Date/Time Labs Ordered Labs to be done on [date and time ordered]: 01/12 @ 4545
[2025-01-11] MEDS: Vancomycin HCl 1,500 MG in 0.9% Normal Saline (500mL Bag) 500 ML 250 MG IV (06:35)
--- NOTE | 2025-01-11 07:34 | NURSING ---
This RN received a phone call at this time from ELPIDIO Quintanilla representing the [facility] center. She stated that per Dr Pratt (Spine MD) there is an significant delay in patient care requiring that we seek alternative hospital transfer options, as the patient needs to be seen sooner than they are able to care for patient. [place] also states that [facility] more has NOT been notified due to patient transfer of care from ED to Inpatient Hospitalist provider.
[2025-01-11 07:53] LABS: Hematocrit 45.9 % (40-54); Hemoglobin 15.3 g/dL (13.0-16.5); Immature Granulocytes Count 0.030 X10^3/uL (0.0-0.0); Mean Corp Hgb Conc 33.3 g/dL (32-36); Mean Corpuscular Volume 85.0 fL (80-94); Mean Platelet Vol. 10.4 fl (6.2-12.0); NRBC Flagged by Analyzer 0 % (0-5); Platelet Count 273 K/mm3 (150-450); RBC Distribution Width CV 12.5 % (11.6-14.6); RBC Distribution Width SD 38.4 fl (35.1-43.9); Red Blood Count 5.40 M/mm3 (4.6-6.2); White Blood Count 8.1 K/mm3 (4.4-11.0)
[2025-01-11 08:29] LABS: AST(SGOT) 23 U/L (<=37); Alanine Aminotransfer ALT/SGPT 41 U/L (<=46); Albumin, Serum 4.4 g/dL (3.5-5.0); Alkaline Phosphatase 142 U/L (40-129); Anion Gap 15 (5-15); BUN 11 mg/dL (4-19); BUN/Creat Ratio 13.3 RATIO (10-20); CRP 8.67 mg/L (0.0-3.0); Calcium,Total 9.7 mg/dL (7.6-11.0); Carbon Dioxide 22.1 mmol/L (21.0-32.0); Chloride 103 mmol/L (98-108); Estimated Creatinine Clearance 171.18 ml/min (50-250); Globulin 2.9 g/dL (2.2-4.2); Glucose 100 mg/dL (70-99); HIV Nonreactive (Nonreactive); Magnesium 2.2 mg/dL (1.5-2.2); Potassium 3.9 mmol/L (3.3-5.1)
[2025-01-11] MEDS: 0.9% Saline Lock 10 ML Syringe IV (09:34)
[2025-01-11] MEDS: Piperacil/Tazobactam 3.375 GM in 0.9% Normal Saline (50mL MB+) 50 ML IV (09:34)
[2025-01-11] MEDS: Nicotine (PBKC) 14 MG Patch TD (10:07)
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
[2025-01-11 10:25] VITALS: BP 154/85; PULSE 78; RESP 18; TEMP 36.8; O2SAT 98
[2025-01-11 10:36] VITALS: BP 154/85; PULSE 78; RESP 18; TEMP 36.8; O2SAT 98
--- NOTE | 2025-01-12 03:58 | PCM.HOSP.N ---
Hospitalist Note Called by lab secondary to 1 aerobic bottle is positive for gram-positive cocci in clusters. Could very well be staph epi versus Staph aureus with presentation. Patient was getting antibiotics while he was here and his discharge with ceftriaxone 2 g every 8 and vancomycin every 12. He has been transferred to tertiary center at [facility]. design tech to fax results to [facility].
== END 2025-01-11 11:08 | disposition short-term general hospital (02) | DRG 539 ==
LOC: ED 16:39 → PCU 01-11 05:33
PROVIDERS: Admitting Provider Internal Medicine; Emergency Provider Emergency Medicine; Visit Provider Family Medicine
DX: M46.24 Osteomyelitis of vertebra, thoracic region (principal); G06.1 Intraspinal abscess and granuloma; G95.89 Other specified diseases of spinal cord; K76.0 Fatty (change of) liver, not elsewhere classified; E66.9 Obesity, unspecified; F17.210 Nicotine dependence, cigarettes, uncomplicated; M40.204 Unspecified kyphosis, thoracic region; Z68.32 Body mass index [BMI] 32.0-32.9, adult
CPT/HCPCS: 36415; 71275; 72157; 74174; 80048; 80053; 80076; 83605; 83690; 83735; 84100; 84484; 85025; 85652; 86140; 86703; 87040; 87149; 93005; 99285; A9575; Q9967; A4216; J0696; J2405